=== PATIENT | male | born 1985 | race Caucasian/White ===

== ENCOUNTER 2018-03-20 15:26 | Emergency (ER) | payer OTHER ==
[~2018-03-20] VITALS: Ht 190.5 cm; Wt 102.1 kg
[2018-03-20 15:55] VITALS: BP 126/89
== END 2018-03-20 15:59 | disposition home or self-care (01) ==
LOC: M.ERS 15:26
DX: S90.121A Contusion of right lesser toe(s) without damage to nail, initial encounter (principal); W01.0XXA Fall on same level from slipping, tripping and stumbling without subsequent striking against object, initial encounter; Y93.89 Activity, other specified; Y92.89 Other specified places as the place of occurrence of the external cause; Y99.8 Other external cause status